=== PATIENT | female | born 1960 | race Asian ===

== ENCOUNTER 2018-12-16 12:31 | Emergency (ER) | payer OTHER ==
[~2018-12-16] VITALS: Ht 162.6 cm; Wt 61.2 kg
[2018-12-16 12:34] VITALS: BP 141/80
--- NOTE | 2018-12-16 12:37 | NUR ---
ED Nurse Note: patient brought in to ER from home by ambulance due to sudden back pain 07/26 which started 1 hour ago at home. pt felt pulling muscle while she was lifting stuff from refregirator. no fall or truma per pt. pt aao x4 and bedridden at this moment. calm and cooperative. skin clean and intact. no acute distress noted at this time. pt cannot move neck or other parts of body. pt reminding supine position.
--- NOTE | 2018-12-16 12:51 | NUR ---
ED Nurse Note: ERPA at bedside.
--- NOTE | 2018-12-16 13:07 | Emergency Room Report ---
History of Present Illness General Chief Complaint: Lower Back Pain or Injury Source: Patient Present Illness HPI 57-year-old female presents to the emergency department complaining of 10 out of 10 severity acute exacerbation of low back pain radiating upward x 1 hour RADAR TESTER. She reports pain exacerbation with movement of the body or with with deep breathing. Pt. reports she was recently seen by her PMD for dizziness x 2 weeks. Pt. reports having chronic pain in back x 1 year. Pt. PCP ordered MRI of head which is awaiting pre-auth from insurance. Pt. reports normal urinary and bowel habits, no trauma or fall. Denies numbness tingling or loss of sensation or gross motor movements of the extremities, Denies Palpitations, LOC , AMS, Changes in Vision, weakness or a sudden severe headache. Denies recent spinal procedures or hx of cancer. Denies abdominal pain, urinary frequency, urgency, hematuria or dysuria. Patient denies fevers or chills. Allergies: Coded Allergies: No Known Allergies (Unverified , 12/16/18) Patient History Past Medical History: see triage record Past Surgical History: none Pertinent Family History: none Now: No Reviewed Nursing Documentation: PMH: Agreed; PSxH: Agreed Nursing Documentation-PMH Past Medical History: No Stated History Review of Systems All Other Systems: negative except mentioned in HPI Physical Exam Vital Signs Date Time Temp Pulse Resp B/P (MAP) Pulse Ox O2 Delivery O2 Flow Rate FiO2 12/16/18 12:27 97.9 80 18 141/80 (100) 98 Room Air Sp02 EP Interpretation: reviewed, normal General Appearance: alert, GCS 15, non-toxic, mild distress Head: normocephalic, atraumatic Eyes: bilateral eye normal inspection, bilateral eye PERRL ENT: hearing grossly normal, normal voice Neck: full range of motion Respiratory: chest non-tender, lungs clear, normal breath sounds, no accessory muscle use, no wheezing, speaking full sentences Cardiovascular #1: regular rate, rhythm, no edema, normal capillary refill Gastrointestinal: normal bowel sounds, non tender, soft, non-distended, no guarding, no pulsatile mass Genitourinary: normal inspection, no CVA tenderness Musculoskeletal: other - ROM Testing is unable to be performed initially due to pain, tender - Tenderness to palpation to paraspinal muscles of the lower back with midline tenderness Neurologic: alert, oriented x3, responsive, motor strength/tone normal, sensory intact, speech normal, other - no evidence of incontinence., grossly normal Psychiatric: judgement/insight normal Skin: normal color, normal inspection Medical Decision Making PA Attestation Dr. Torres is my supervising Physician whom patient management has been discussed with. Diagnostic Impression: Primary Impression: Low back pain Qualified Codes: M54.5 - Low back pain ER Course 57-year-old female presents to the emergency department complaining of 10 out of 10 severity acute exacerbation of low back pain radiating upward x 1 hour RADAR TESTER. She reports pain exacerbation with movement of the body or with with deep breathing. Pt. reports she was recently seen by her PMD for dizziness x 2 weeks. Pt. reports having chronic pain in back x 1 year. Pt. PCP ordered MRI of head which is awaiting pre-auth from insurance. Pt. reports normal urinary and bowel habits, no trauma or fall. Denies numbness tingling or loss of sensation or gross motor movements of the extremities, Denies Palpitations, LOC , AMS, Changes in Vision, weakness or a sudden severe headache. Denies recent spinal procedures or hx of cancer. Denies abdominal pain, urinary frequency, urgency, hematuria or dysuria. Patient denies fevers or chills. Ddx considered: epidural abscess, fracture, sprain/strain, meningitis, spinal chord injury, sciatica, cauda equina, Pyelonephritis, renal calculi just to name a few. Vital signs reviewed and are WNL during ED visit. Pt. is afebrile with no signs of infection No new symptoms, and denies recent trauma. No saddle anesthesia noted, Pt. denies incontinence Neurovascular is intact ROM is limited due to pain * Tenderness to palpation to paraspinal muscles of the lower back with midline tenderness. *Pt. describes pain today as severe and radiates across the lower back. ORDERS: -CXR: WNL -UA: WNL - CT L-SPINE: WNL -EKG: NSR with PVC's every three beats. INTERVENTIONS: - Tramadol PO - 30mg IM Toradol -Robaxin PO -Lidoderm TP - 6mg Morphine IM -I do not identify an emergent condition at this time. With current presentation , pt. is stable for close outpatient follow up and conservative treatment. D/ w pt. to return promptly to ED with worsening or new symptoms.- Pt. verbalizes' understanding and agreement with proposed treatment plan. D/W Pt. that for further pain management is it recommended to consult PCP or a Chronic Pain management doctor. A provider who can safely prescribe controlled substances with close follow up. DISCHARGE: At this time pt. is stable for d/c to home. Will provide printed patient care instructions, and any necessary prescriptions. Care plan and follow up instructions have been discussed with the patient prior to discharge. Labs Test 12/16/18 13:30 Urine Color Pale yellow Urine Appearance Clear Urine pH 8 (4.5-8.0) Urine Specific Lynch 1.015 (1.005-1.035) Urine Protein Negative (NEGATIVE) Urine Glucose (UA) Negative (NEGATIVE) Urine Ketones Negative (NEGATIVE) Urine Blood Negative (NEGATIVE) Urine Nitrite Negative (NEGATIVE) Urine Bilirubin Negative (NEGATIVE) Urine Urobilinogen Normal MG/DL (0.0-1.0) Urine Leukocyte Esterase Negative (NEGATIVE) EKG Diagnostic Results EP Interpretation: Dr. Torres Rate: normal - 74 bpm Rhythm: NSR ST Segments: no acute changes Other Impression PVC's every 3 beats, non-specific. Chest X-Ray Diagnostic Results Chest X-Ray Diagnostic Results : Chest X-Ray Ordered: Yes # of Views/Limited/Complete: 1 View Indication: Shortness of Breath EP Interpretation: Yes PA Xray: by supervising MD, and agrees with findings. Interpretation: no consolidation, no effusion, no pneumothorax, no acute cardiopulmonary disease Impression: No acute disease Electronically Signed by: Laura Castro PA-C CT/MRI/US Diagnostic Results CT/MRI/US Diagnostic Results : Imaging Test Ordered: L-Spine CT Impression "Impression: Negative lumbar spine CT" per official radiology report- Please see report for specific details. Last Vital Signs Date Time Temp Pulse Resp B/P (MAP) Pulse Ox O2 Delivery O2 Flow Rate FiO2 12/16/18 12:34 97.9 79 18 141/80 98 Room Air Disposition: HOME, SELF-CARE Condition: Stable Scripts Ibuprofen* (MOTRIN*) 600 Mg Tablet 600 MG ORAL THREE TIMES A DAY, #30 TAB 0 Refills Prov: Laura Castro 12/16/18 Lidocaine Patch* (Lidoderm Patch*) 1 Each Adh..patch 1 PATCH TOPIC DAILY, #30 PATCH 0 Refills Patch(es) may remain in place for up to 12 hours in any 24-hour period. Prov: Laura Castro 12/16/18 Tramadol Hcl* (ULTRAM*) 50 Mg Tablet 50 MG ORAL Q6H PRN for For Pain, #12 TAB 0 Refills Prov: Laura Castro 12/16/18 Patient Instructions: Back Pain, Adult Additional Instructions: Take medications as directed. Follow up with a Primary Care Provider within 3-5 days, even if your symptoms have resolved. --Please review list of primary care clinics, if you do not already have a primary care provider Return sooner to ED if new symptoms occur, or current symptoms become worse. Do not drink alcohol, drive, or operate heavy machinery while taking tramadol as this may cause drowsiness. - Please note that this Emergency Department Report was dictated using [employer] operator technology software, occasionally this can lead to erroneous entry secondary to interpretation by the dictation equipment. Laura Castro Dec 16, 2018 13:07
[2018-12-16] MEDS ORDERED: traMADol 50mg tab ORAL ONE (13:15)
--- NOTE | 2018-12-16 13:36 | NUR ---
ED Nurse Note: COLLECTED URINE THEN SENT.
[2018-12-16 13:47] LABS: APPEARANCE,URINE CLEAR; BILIRUBIN, URINE NEGATIVE (NEGATIVE); COLOR,URINE PALE YELLOW; GLUCOSE, URINE (UA) NEGATIVE (NEGATIVE); KETONES,URINE NEGATIVE (NEGATIVE); LEUKOCYTE ESTERASE ,URINE NEGATIVE (NEGATIVE); NITRITE,URINE NEGATIVE (NEGATIVE); PH,URINE 8 (4.5-8.0); PROTEIN,URINE NEGATIVE (NEGATIVE); UROBILINOGEN,URINE NORMAL MG/DL (0.0-1.0)
[2018-12-16 15:00] VITALS: BP 149/86
--- NOTE | 2018-12-16 15:16 | Diagnostic Imaging Report ---
Indication: Back pain Technique: Continuous helical transaxial imaging of the lumbar spine was obtained. No IV contrast was administered. Coronal 2-D reformats were also obtained. Study obtained in a Siemens sensation [address] Total Dose length Product (DLP): 509.[address] Dose Index Volume (CTDIvol): 15.5 mGy Comparison: None Findings: There is no evidence of an acute fracture or malalignment. Height and configuration of the vertebral bodies and intervertebral discs are within normal limits. The facets are unremarkable. There is no soft tissue swelling. Minimal calcification of aorta noted. Impression: Negative lumbar spine CT The CT scanner at [facility] is accredited by the [employer] and the scans are performed using dose optimization techniques as appropriate to a performed exam including Automatic Exposure control.
--- NOTE | 2018-12-16 15:42 | Diagnostic Imaging Report ---
Indication: Dyspnea Comparison: None A single view chest radiograph was obtained. Findings: No definite infiltrate or pulmonary vascular congestion identified. The heart is enlarged. The aorta is mildly enlarged consistent with atherosclerotic vascular disease. The bones are osteopenic. Impression: No acute disease
[2018-12-16] MEDS ORDERED: Methocarbamol 750mg tab ORAL ONE (15:45)
[2018-12-16] MEDS ORDERED: Ketorolac 30mg Inj IV ONE (15:45)
[2018-12-16] MEDS ORDERED: Morphine Sulfate 2mg/ml Inj(IV/IM USE ONLY) IM ONE (16:00)
[2018-12-16] MEDS ORDERED: LIDODERM700 M1 TOPIC (16:56)
[2018-12-16] MEDS ORDERED: TRAMADOL HCL50 MG ORAL (16:56)
[2018-12-16] MEDS ORDERED: IBUPROFEN600 MG ORAL (16:56)
[2018-12-16 17:04] VITALS: BP 140/79
--- NOTE | 2018-12-16 17:04 | NUR ---
ER DISCHARGE NOTE: Patient is cleared to be discharged per PA, pt is aox4, on room air, with stable vital signs. pt was given dc and prescription instructions, pt was able to verbalize understanding, pt id band removed. pt is able to ambulate with steady gait. pt took all belongings and left with her son.
--- NOTE | 2018-12-18 12:49 | Cardiology Report ---
APPROVED REPORT EKG Measurement Heart [id number] Sinus bradycardia with frequent premature ventricular complexes Otherwise normal ECG
== END 2018-12-16 17:04 | disposition home or self-care (01) ==
LOC: EDBD 12:31 → EMR 13:10
DX: M54.5 Low back pain (principal); R06.02 Shortness of breath
CPT/HCPCS: 71045; 72131; 81003; 93005; 96372; 96374; J2270; Z7502; 99284